=== PATIENT | female | born 1995 | race Caucasian/White ===

== ENCOUNTER → 2020-08-15 10:58 | Outpatient (BNVA) | payer OTHER, SELFPAY | PROVIDERS: Visit Provider Nurse Practitioner | DX: Z11.59 Encounter for screening for other viral diseases (principal) | CPT/HCPCS: 87635 ==

== ENCOUNTER → 2021-04-26 09:07 | Outpatient (BNVA) | payer OTHER, SELFPAY | PROVIDERS: PCP Nurse Practitioner; Visit Provider Nurse Practitioner | DX: R53.83 Other fatigue (principal); E55.9 Vitamin D deficiency, unspecified; E66.9 Obesity, unspecified | CPT/HCPCS: 80053; 80061; 82306; 82607; 84443; 85025 ==

== ENCOUNTER → 2021-09-20 09:52 | Outpatient (BNVA) | payer OTHER, SELFPAY | PROVIDERS: PCP Nurse Practitioner; Visit Provider Nurse Practitioner | DX: K59.00 Constipation, unspecified (principal) | CPT/HCPCS: 74018 ==

== ENCOUNTER 2021-11-15 08:56 | Outpatient (CLI) | payer OTHER, SELFPAY ==
[2021-11-15 09:10] VITALS: BP 127/61; PULSE 57; RESP 23; TEMP 36.9; O2SAT 99
[2021-11-15 09:22] VITALS: BMI 38.9
[2021-11-15 09:37] VITALS: BP 139/74; PULSE 52; RESP 19; TEMP 36.6; O2SAT 99
[2021-11-15 10:37] VITALS: BP 129/70; PULSE 54; RESP 21; TEMP 36.1; O2SAT 99
== END 2021-11-15 08:57 | disposition home or self-care (01) ==
LOC: OPS 08:59
PROVIDERS: PCP Nurse Practitioner; Visit Provider Nurse Practitioner
DX: U07.1 COVID-19 (principal)
CPT/HCPCS: 96365

== ENCOUNTER → 2023-05-23 10:57 | Outpatient (BNVA) | payer OTHER, SELFPAY | PROVIDERS: PCP Nurse Practitioner Family; Visit Provider Nurse Practitioner Family | DX: R11.2 Nausea with vomiting, unspecified (principal); J45.909 Unspecified asthma, uncomplicated | CPT/HCPCS: 80053; 82306; 82607; 84443; 85025; 86308; 87400; 87426 ==

== ENCOUNTER 2023-05-27 06:37 | Outpatient (CLI) | payer OTHER, SELFPAY ==
--- NOTE | 2023-05-27 | US_ITS ---
WS: [id number] Complete ABDOMINAL ULTRASOUND HISTORY: n/v COMPARISON: None available. Liver: 13.0 cm in length. Normal size liver and echogenicity. No bile duct dilatation or mass. Portal Vein: Normal hepatopetal flow with monophasic waveform. Gallbladder: Abnormal gallbladder. Large amount shadowing from the gallbladder fossa. Partially visua lized gallbladder. Large amount of shadowing from the gallbladder is from the nondependent gallbladde r lumen. CBD: 0.2 cm Pancreas: Normal size and echogenicity. Right kidney: 10.6 cm x 4.7 x 3.8 cm. Cortex:1.2 cm. Normal size and echogenicity. No hydronephrosis or mass. Left kidney: 10.7 cm x 3.8 cm x 4.3 cm. Cortex: 1.2 cm. Normal size and echogenicity. No hydronephrosis or mass. Spleen: 12.0 cm in length. Aorta and IVC: Unremarkable abdominal aorta and IVC. US/US abdomen complete* [id number] Impression: 1. Very abnormal gallbladder. Gallbladder is filled with stones and sludge. Th e gallbladder wall is top normal size with no pericholecystic fluid. 2. No bile duct dilatation.
== END 2023-05-27 06:38 | disposition home or self-care (01) ==
LOC: RAD 06:38
PROVIDERS: PCP Nurse Practitioner Family; Visit Provider Nurse Practitioner Family
DX: K80.20 Calculus of gallbladder without cholecystitis without obstruction (principal); R11.2 Nausea with vomiting, unspecified
CPT/HCPCS: 76700

== ENCOUNTER 2023-06-10 10:07 | Day surgery (SDC) | payer OTHER, SELFPAY ==
[2023-06-07 14:26] VITALS: BMI 38.4
[2023-06-10] VITALS (9 sets, daily range): BP systolic 107–139; BP diastolic 54–86; PULSE 55–80; RESP 16–18; TEMP 36.2–37.2; O2SAT 93–100
--- NOTE | 2023-06-10 10:29 | W.PM.OPSUD ---
Surgery/Procedure H&P Update DATE OF PROCEDURE: June 10, 2023 DATE H&P PERFORMED: 05/30/23 H&P UPDATE INFORMATION: I have reviewed H&P completed within last 30 days, I have examined patient prior to procedure and No changes to prior documentation PLANNED PROCEDURE: Operation Date: 06/10/23 11:40 Proposed Procedures p [id number] lap angela K80.20(Not Applicable) - Lorenzo Lara DO
--- NOTE | 2023-06-10 10:44 | P.ANESASSM_ITS ---
Pre-Anesthetic Assessment Height/Weight: Height 1.57 m Weight 95.254 kg Temp Pulse Resp BP Pulse Ox O2 Del Method 99 F 80 18 139/86 100 Room Air 06/10/23 10:28 06/10/23 10:28 06/10/23 10:28 06/10/23 10:28 06/10/23 10:28 06/10/23 10:36 Operation Date: 06/10/23 11:40 Proposed Procedures p [id number] lap angela K80.20(Not Applicable) - Lorenzo Lara DO Familial anesthetic complications: None Was Beta Ellie taken within 24 hours: N/A Was Clonidine taken within 24 hours: N/A Last intake: Intake Last Liquid Date 06/09/23 Last Liquid Time 23:00 Last Solid Date 06/09/23 Last Solid Time 22:00 Social No alcohol and No tobacco Exam alert, oriented x 3, clear to auscultation bilaterally and regular rate & rhythm Airway Mallampati: Class III Dentition: full Pulmonary Asthma Metabolic Morbid Obesity Anesthetic Plan ASA status: 2 Anesthesia: General Risk of > 500 ml blood loss (7ml/kg in children): No Medications/Allergies Home Medications Medication Instructions Recorded Confirmed Last Taken Type nebulizer accessories #1 ea 08/15/20 05/30/23 Unknown Rx Disposable nebulizer circuit #1 ea 11/13/21 05/30/23 Unknown Rx albuterol sulfate 2.5 mg/3 mL 2.5 mg (3 mL) inhalation Q4H PRN 11/01/22 06/07/23 05/22/23 Rx (0.083 %) solution for nebulization shortness of breath or wheezing #75 mL albuterol sulfate 90 mcg/actuation 2 inh inhalation Q4H PRN 05/23/23 06/07/23 06/10/23 Rx aerosol inhaler (Ventolin HFA) bronchospasm #36 grams fluticasone furoate 200 1 inh inhalation DAILY #60 ea 05/23/23 06/07/23 06/09/23 Rx mcg-vilanterol 25 mcg/dose inhalation powder (Breo Ellipta) fluticasone propionate 50 2 spray intranasal QDAY #15.8 mL 05/23/23 06/07/23 06/10/23 Rx mcg/actuation nasal spray,suspension loratadine 10 mg tablet (Claritin) 10 mg PO DAILY #30 tabs 05/23/23 06/07/23 06/10/23 Rx montelukast 10 mg tablet 10 mg PO DAILY #30 tabs 05/23/23 06/07/23 06/10/23 Rx norgestimate-ethinyl estradiol 1 tab PO QDAY #84 tabs 05/23/23 06/07/23 06/10/23 Rx 0.18 mg/0.215mg/0.25mg-35 mcg(28)tablet (Tri-Sprintec (28)) ondansetron 8 mg disintegrating 8 mg PO Q8H PRN nausea and 05/23/23 06/07/23 06/03/23 Rx tablet vomiting #30 tabs dexlansoprazole 60 mg 60 mg PO DAILY #30 caps 05/29/23 06/07/23 06/09/23 Rx capsule,biphase delayed release (Dexilant) magnesium 200 mg tablet 200 mg PO DAILY 05/30/23 06/07/23 06/09/23 History Allergies Allergy/AdvReac Type Severity Reaction Status Date / Time No Known Allergies Allergy Verified 05/30/23 13:52 [facility] Anesthesia Medical History Asthma Oral contraceptive pill surveillance Surgical History History of appendectomy Family History Father Chronic kidney disease (CKD) Diabetes Social History Smoking and tobacco status: never smoked Second hand smoke exposure: Yes Smoking risk assessment/counseling performed?: No Alcohol intake: current Alcohol intake frequency: few times a month Desire information about alcohol rehabilitation?: No Counseling given: No Substance/Drug Use: never Desire information about substance/drug rehabilitation?: No Counseling given: No Adopted: No Caregiver/support person: Yes Lives independently: Yes Household members: significant other Housing: House Marital status: Single Number of children: 0 service: No Current occupational status: employed and student Current occupation: [employer] Do you think of yourself as: Straight/Heterosexual Current gender identity: Female Data Anesthesia Cardiac Studies: No Data to Display
[2023-06-10] MEDS: sodium chloride 0.9% 1,000 ML 30 ML IV (10:45)
[2023-06-10 10:48] LABS: OR HCG Qualitative Urine Negative (Negative)
[2023-06-10] MEDS: ceFAZolin 2,000 MG in sodium chloride 0.9% (plus) 50 ML 100 MG IV (10:55)
[2023-06-10] MEDS: lidocaine-epi 2% 20 mL INJ INJECTION (11:09)
--- NOTE | 2023-06-10 11:35 | P.OP_ITS ---
Operative Report Date of procedure: June 10, 2023 Pre-op diagnosis: Symptomatic cholelithiasis Post-op diagnosis: same Procedure done: Laparoscopic cholecystectomy Implants: None Specimens removed/disposition: Gallbladder Surgeon: Dr. Lorenzo Lara DO Anesthesia: General Estimated blood loss (mL): 5 Complications: None apparent Brief History: This very pleasant 27-year-old female who presented to my office with symptomatic cholelithiasis. Laparoscopic cholecystectomy was indicated. The risk and benefits were explained and documented. Procedure: Patient was wheeled into the operative room and placed on the OR table in a supine position. Abdomen was inspected prepped and draped in usual sterile fashion. Time-out was performed and all present were in agreement. A 15 blade scalp was used to make a stab incision in the left upper quadrant and intra-ab dominal insufflation was achieved using a Veress needle. After localizing the tissue incisions were made and a 5 millimeter trocar was placed into the umbilicus as well as 2 in the right upper quadrant. A 12 millimeter trocar was placed in the epigastrium. Gallbladder was grasped and elevated. The triangle of Calot was carefully dissected using blunt dissection and electrocautery until the triangle of Calot clearly identified. The cystic duct was clipped proximally and double clipped distally. The duct was then ligated proximally. The cystic artery was doubly clipped and ligated. The gallbladder was then removed from the liver bed using electrocautery. The gallbladder was removed from the abdomen using an Endo-Catch bag through the epigastric incision. The liver bed was inspected and no bleeding was seen. The abdomen was irrigated and suctioned. All ports removed. Skin was washed and dried. Incisions were closed with 3-0 and 4-O Vicryl in a subcuticular interrupted fashion. Skin glue was applied. Patient tolerated the procedure well.
--- NOTE | 2023-06-10 13:00 | ANE.PACU2 ---
Inpatient post-anesthesia follow up: Airway intact: Yes Vital signs: Temperature 97.2 F Pulse Rate 56 Respiratory Rate 16 Blood Pressure 107/71 Pulse Oximetry 97 Oxygen Delivery Me thod Room Air Oxygen Flow Rate Fraction of Inspir ed Oxygen Hydration adequate: Yes Nausea and vomiting: No Pain level: 1 Mental status: Baseline
[2023-06-10] MEDS: HYDROcodone-acetaminophen 10-325 mg Tablet 1 TAB PO (13:06)
[2023-06-10] MEDS: ondansetron 2 mg/ML SDV 2 mL 4 MG IVP (13:12)
== END 2023-06-10 13:57 | disposition home or self-care (01) ==
PROVIDERS: Anesthesiology; PCP Nurse Practitioner Family; Visit Provider Surgery
PROC: 0FT44ZZ Resection of Gallbladder, Percutaneous Endoscopic Approach (ICD-10-PCS; CPT 47562; principal; 2023-06-10 11:40)
DX: K80.10 Calculus of gallbladder with chronic cholecystitis without obstruction; J45.909 Unspecified asthma, uncomplicated; E66.01 Morbid (severe) obesity due to excess calories; Z68.38 Body mass index [BMI] 38.0-38.9, adult
CPT/HCPCS: 47562; 81025; 84703; 88304; J0690; J1100; J1170; J1200; J2250; J2405; J2704; J2710; J3010; J3490; J7030

== ENCOUNTER → 2024-01-21 12:52 | Outpatient (BNVA) | payer OTHER, SELFPAY | PROVIDERS: PCP Nurse Practitioner Family; Visit Provider Family Medicine | DX: Z34.90 Encounter for supervision of normal pregnancy, unspecified, unspecified trimester (principal); Z3A.00 Weeks of gestation of pregnancy not specified; R30.0 Dysuria | CPT/HCPCS: 80307; 81000; 81025; 84144; 84443; 84702; 85025; 86592; 86762; 86803; 86850; 86900; 87086; 87340; 87491; 87591; 87624; 87806 ==

== ENCOUNTER 2024-01-28 14:49 | Outpatient (CLI) | payer OTHER, SELFPAY ==
--- NOTE | 2024-01-28 15:00 | US_ITS ---
WS: [id number] EARLY OBSTETRICAL ULTRASOUND (<14 WEEKS). HISTORY: Dating US - Next 1-2 weeks if possible COMPARISON: None available. Single intrauterine gestational sac is identified. Cardiac activity at 165 BPM. [place]-rump length kianna sures 2.5 cm which corresponds to a gestation of 9 weeks 2 days. Normal-appearing yolk sac and amnion demonstrated. No subchorionic hemorrhage. No free fluid. RIGHT ovary measures 3.4 x 1.6 x 2.8 cm. There are small follicles in the RIGHT ovary and a corpus maximo teal cyst measuring 2.3 x 1.7 x 1.6 cm. Normal size LEFT ovary with normal vascularity. IMPRESSION: 1. Single intrauterine gestation of 9 weeks 2 days with an EDC of 08/30/2024. 2. Normal cardiac activity.
== END 2024-01-28 14:50 | disposition home or self-care (01) ==
LOC: RAD 14:49
PROVIDERS: PCP Nurse Practitioner Family; Visit Provider Family Medicine
DX: Z34.01 Encounter for supervision of normal first pregnancy, first trimester (principal)
CPT/HCPCS: 76801; 76817

== ENCOUNTER 2024-04-16 10:54 | Outpatient (CLI) | payer OTHER, SELFPAY ==
--- NOTE | 2024-04-16 11:00 | US_ITS ---
WS: [id number] OBSTETRICAL ULTRASOUND COMPLETE HISTORY: Anatomy US - about 4 weeks from now COMPARISON: 01/28/2024 Single intrauterine gestation in Cephalic presentation. Cervix is Closed and normal length. Cervical length is 2.5 cm. Cervical length is measuring short but there is no fluid in the cervical c anal. Suspect the entire cervical length is not imaged due to maternal body habitus. Normal amount of amniotic fluid surrounds the fetus. Placenta: Posterior, no previa or abruption. Placenta grade 1 Heart: 150 BPM. Four chambers are identified. Although limited the outflow tracts appear appropriate. Normal three-vessel view. Anatomy: Spine is posterior during the examination. Intracranial structures are negative. kidne ys, stomach and urinary bladder are unremarkable. Abdominal wall, three-vessel cord and cord insertio n site are normal. 4 extremities are present. profile: Not visualized Gender: Not imaged measurements: BPD = 5.0 cm = 21w1d; HC = 18.5 cm = 20w6d; AC = 15.5 cm = 20w5d; FL = 3.4 cm = 20w5d; EFW: 374.8 g. 46.9 % Biometry is internally concordant. AGA by ultrasound: 20w5d FLORI by ultrasound: 08/29/2024 US/US OB >= 14 weeks fetus [id number] IMPRESSION: 1. Single intrauterine gestation of 20w5d with an FLORI of 08/29/2024. Appropria te growth since the first trimester ultrasound. 2. Overall the anatomic screening survey is limited as maternal body habitus. No abnormalities are identified. Mildly limited spine due to position.
== END 2024-04-16 10:55 | disposition home or self-care (01) ==
LOC: RAD 10:54
PROVIDERS: PCP Nurse Practitioner Family; Visit Provider Family Medicine
DX: Z34.02 Encounter for supervision of normal first pregnancy, second trimester (principal)
CPT/HCPCS: 76805

== ENCOUNTER → 2024-05-15 09:18 | Outpatient (BNVA) | payer OTHER, SELFPAY | PROVIDERS: PCP Nurse Practitioner Family; Visit Provider Family Medicine | DX: Z34.00 Encounter for supervision of normal first pregnancy, unspecified trimester (principal); Z3A.00 Weeks of gestation of pregnancy not specified | CPT/HCPCS: 82950 ==

== ENCOUNTER → 2024-06-10 13:54 | Outpatient (BNVA) | payer OTHER, SELFPAY | PROVIDERS: PCP Nurse Practitioner Family; Visit Provider Nurse Practitioner Family | DX: Z20.822 Contact with and (suspected) exposure to COVID-19 (principal) | CPT/HCPCS: 87426 ==

== ENCOUNTER → 2024-06-29 09:20 | Outpatient (BNVA) | payer OTHER, SELFPAY | PROVIDERS: PCP Nurse Practitioner Family; Visit Provider Family Medicine | DX: Z51.81 Encounter for therapeutic drug level monitoring (principal) | CPT/HCPCS: 85025 ==

== ENCOUNTER → 2024-06-30 14:00 | Outpatient (BNVA) | payer OTHER, SELFPAY | PROVIDERS: PCP Nurse Practitioner Family; Visit Provider Family Medicine | DX: N18.9 Chronic kidney disease, unspecified (principal) | CPT/HCPCS: 85025 ==

== ENCOUNTER 2024-08-07 06:00 | Outpatient (CLI) | payer OTHER, SELFPAY | END 2024-08-07 06:01 | disposition home or self-care (01) | LOC: RAD 08-10 06:22 | PROVIDERS: PCP Nurse Practitioner Family; Visit Provider Family Medicine | DX: Z34.90 Encounter for supervision of normal pregnancy, unspecified, unspecified trimester (principal) | CPT/HCPCS: 87081 ==

== ENCOUNTER 2024-08-14 10:39 | Outpatient (CLI) | payer OTHER, SELFPAY ==
--- NOTE | 2024-08-14 10:45 | US_ITS ---
WS: [id number] ULTRASOUND OB FOCUSED HISTORY: DETERMINE POSITION COMPARISON: 04/16/2024 Single intrauterine gestation is present in vertex presentation. The cervix is not identified due to low position of the head. Placenta is posterior and grade 2. heart rate at 136 BPM. US/US OB limited [id number] IMPRESSION: Vertex presentation.
== END 2024-08-14 10:40 | disposition home or self-care (01) ==
LOC: RAD 10:40
PROVIDERS: PCP Nurse Practitioner Family; Visit Provider Family Medicine
DX: O32.8XX0 Maternal care for other malpresentation of fetus, not applicable or unspecified (principal)
CPT/HCPCS: 76815

== ENCOUNTER 2024-09-01 19:04 | Inpatient (IN) | payer OTHER, SELFPAY ==
[2024-09-01 19:15] VITALS: BP 135/73; PULSE 95
[2024-09-01 19:33] VITALS: BP 115/71; PULSE 94
[2024-09-01 19:41] LABS: Basophils % 0.3 %; Eosinophils # 0.1 10^3/uL (0.0-0.8); Eosinophils % 0.7 %; Hematocrit 37.4 % (36-47); Lymphocytes # 2.4 10^3/uL (0.8-4.8); Lymphocytes % 17.5 %; Mean Corpuscular HGB Conc 34.2 g/dL (30-55); Mean Corpuscular Hemoglobin 31.8 pg (27-33); Mean Corpuscular Volume 92.8 fl (85-98); Monocytes # 0.7 10^3/uL (0.2-0.9); Monocytes % 5.4 %; Neutrophils # 10.35 10^3/uL (1.8-7.7); Neutrophils % 75.2 %; Nucleated Red Blood Cells % 0 %; Platelet Count 238 10^3/cmm (157-399); Red Blood Count 4.03 10^6/uL (3.85-5.65); Red Cell Distribution Width 12.6 % (12.1-15.1); White Blood Count 13.75 10^3/uL (3.29-11.43)
[2024-09-01 19:43] VITALS: BMI 48.5
[2024-09-01 19:47] VITALS: BP 116/55; PULSE 81
--- NOTE | 2024-09-01 19:55 | PC.NURSE ---
Nurses Indigo Jean, and Indigo Hoyt checked presentation at bedside using sono, both nurses confirmed fetus in head down position, sono printed and placed in patient's chart.
[2024-09-01 20:00] LABS: Amphetamines Screen Urine Negative (Negative); Barbiturates Screen Urine Negative (Negative); Benzodiazepines Screen Urine Negative (Negative); Cocaine Screen Urine Negative (Negative); Opiate Screen Urine Negative (Negative); PCP Screen Urine Negative (Negative); THC Screen Urine Negative (Negative)
[2024-09-01 20:06] VITALS: RESP 18; TEMP 36.6
[2024-09-01] MEDS: miSOPROStol 100 mcg tablet 25 MCG VAGINAL (21:07)
--- NOTE | 2024-09-01 21:09 | P.HP_ITS ---
Providers/Chief Complaint 2 Admitting Physician: Simone Connor MD Primary Care Provider: Simone Connor MD Chief Complaint: IOL History of Present Illness Citlali Cornejo is a 28 year old @ 40.2 weeks by LMP c/w with 9 wk US. Preg c/b asthma, THC use in early . The patient presented to labor and delivery for a scheduled induction of labor due to postdates. She feels well overall. She denies any chest pains, shortness of breath, nausea, vomiting, diarrhea, constipation, dysuria, vaginal bleeding, leakage of fluid, fever. She has had some low back pain that has been present for a few weeks. It seems to be worse with position change and better with rest. On the monitor she is not having any contractions. Her heart tones are in the mid 150s with moderate variability good accelerations with a category 1 tracing. Medications/Allergies Home Medications Medication Instructions Recorded Confirmed Last Taken Type nebulizer accessories #1 ea 08/15/20 09/01/24 Unknown Rx Disposable nebulizer circuit #1 ea 11/13/21 09/01/24 Unknown Rx albuterol sulfate 2.5 mg/3 mL 2.5 mg (3 mL) inhalation Q4H PRN 11/01/22 09/01/24 09/01/24 Rx (0.083 %) solution for nebulization shortness of breath or wheezing #75 mL magnesium 200 mg tablet 200 mg PO DAILY 05/30/23 09/01/24 06/09/23 History vitamin with calcium 1 tab PO DAILY 01/21/24 09/01/24 08/31/24 History no.72-iron 27 mg-folic acid 1 mg tablet fluticasone propionate 50 See Rx Instructions .Route 05/03/24 09/01/24 09/01/24 Rx mcg/actuation nasal .COMPLEX #16 grams spray,suspension loratadine 10 mg tablet See Rx Instructions .Route 05/03/24 09/01/24 09/01/24 Rx .COMPLEX #30 tabs albuterol sulfate 90 mcg/actuation See Rx Instructions .Route 05/29/24 09/01/24 09/01/24 Rx aerosol inhaler .COMPLEX #36 grams fluticasone furoate 200 See Rx Instructions .Route 05/29/24 09/01/24 09/01/24 Rx mcg-vilanterol 25 mcg/dose .COMPLEX #60 blisters inhalation powder (Breo Ellipta) montelukast 10 mg tablet See Rx Instructions .Route 06/01/24 09/01/24 09/01/24 Rx .COMPLEX #30 tabs Allergies Allergy/AdvReac Type Severity Reaction Status Date / Time No Known Allergies Allergy Verified 09/01/24 19:07 PFSH Acute 2 PFSH: Medical History Oral contraceptive pill surveillance Asthma Surgical History History of laparoscopic cholecystectomy History of appendectomy Family History Father Chronic kidney disease (CKD) Diabetes Social History Smoking and tobacco/nicotine status: former use of tobacco/nicotine Second hand smoke exposure: Yes Alcohol intake: never Substance/Drug Use: former Former substance use details: Quit THC when she became Adopted: No Caregiver/support person: Yes Lives independently: Yes Household members: significant other Housing: House Marital status: Single Number of children: 0 service: No Current occupational status: employed and student Current occupation: [employer] Do you think of yourself as: Straight/Heterosexual Current gender identity: Female Female Reproductive History: : 1 Vitals/I&O/Wt Last Vital Signs Temp 97.8 F 09/01/24 20:06 Pulse 81 09/01/24 19:47 Resp 18 09/01/24 20:06 BP 116/55 09/01/24 19:47 O2 Del Method Room Air 09/01/24 20:06 Weight last 48 hrs Weight 265 lb 8 oz Physical Exam 2 Narrative: General: Alert and oriented x3 Eyes: Pupils equal round and reactive to light and accommodation Mouth: Mucous membranes moist, pharynx non-erythematous Cardiac: Regular rate and rhythm without murmurs Lungs: Clear to auscultation bilaterally without wheezes, crackles or rhonchi Abdomen: Soft, non-tender, fundus consistent with gestational age Extremities: Trace edema in the bilateral lower extremities Data 09/01/24 19:28 A&P Assessment and plan (1) Supervision of normal intrauterine in primigravida: The patient is doing well overall at this time. She was 1 cm in clinic and we will start her on Cytotec for induction of labor. We will use up to 3 doses. She is GBS negative. We will plan for a laboring epidural when she gets to 3 cm or more if she would like. All questions were answered. Routine admission instructions were discussed. The patient and her are in agreement with current plan of care. Attestations 2 Medical Necessity Statement*: The patient will be here for greater than 2 midnights due to routine intrapartum and management of labor and delivery. Coding Level of Care Code Acute Code for Chg Fwd Diagnoses Supervision of normal intrauterine in primigravida Z34.00
[2024-09-01 22:16] VITALS: BP 107/54; PULSE 75
[2024-09-01 23:38] VITALS: BP 115/62; PULSE 82
[2024-09-02] VITALS (33 sets, daily range): BP systolic 88–144; BP diastolic 43–91; PULSE 52–169; RESP 16–18; TEMP 36.2–36.8; O2SAT 98
[2024-09-02] MEDS: miSOPROStol 100 mcg tablet 25 MCG VAGINAL ×3 (01:21→11:02)
--- NOTE | 2024-09-02 08:42 | P.PN_ITS ---
Subjective 2 Subjective: The patient is doing well today. She had her third dose of Cytotec placed at approximately 5:30 AM. She feels that she has had more contractions since this 1 was placed. She has not had any leakage of fluid or vaginal bleeding. Vitals/I&O/Wt Last Vital Signs Temp 97.6 F 09/02/24 04:45 Pulse 74 09/02/24 08:15 Resp 18 09/02/24 04:45 BP 133/60 09/02/24 08:15 O2 Del Method Room Air 09/02/24 04:45 Weight last 48 hrs Weight 265 lb 8 oz Physical Exam 2 Narrative: General: Alert and oriented x3 Eyes: Pupils equal round and reactive to light and accommodation Mouth: Mucous membranes moist, pharynx non-erythematous Cardiac: Regular rate and rhythm without murmurs Lungs: Clear to auscultation bilaterally without wheezes, crackles or rhonchi Abdomen: Soft, non-tender, fundus consistent with gestational age Extremities: Trace edema in the bilateral lower extremities Data 09/01/24 19:28 A&P Assessment and plan (1) Supervision of normal intrauterine in primigravida: The patient is doing well at this time. We will plan to check her again at 930 to see if she is making cervical change. If not, we may allow her to take a break and decide on the next step from there. We discussed a few of the options including Pitocin, Mcqueen bulb and Cytotec. heart tones are in the mid 140s with moderate variability good accelerations with a category 1 tracing. Contractions are every 3 to 5 minutes. Continue with routine intrapartum management. Attestations 2 Medical Necessity Statement*: The patient is currently under observation and will be switched to inpatient status once she starts making change. Her stay will likely cross 2 midnights. Coding Level of Care Code Acute Code for Chg Fwd Diagnoses Supervision of normal intrauterine in primigravida Z34.00
[2024-09-02] MEDS: dextrose 5%-lactated ringers 1,000 ML 125 ML IV ×2 (15:45→23:47)
[2024-09-02] MEDS: oxytocin 30 UNIT/500 ML BAG IV (15:45)
--- NOTE | 2024-09-02 17:10 | ANES.PREANE2 ---
Pre-Anesthetic Assessment Height/Weight: Height 1.57 m Weight 120.429 kg Temp Pulse Resp BP O2 Del Method 97.2 F L 70 18 100/64 Room Air 09/02/24 13:27 09/02/24 17:07 09/02/24 04:45 09/02/24 17:07 09/02/24 04:45 Epidural Familial anesthetic complications: None Was Beta Ellie taken within 24 hours: N/A Was Clonidine taken within 24 hours: N/A Last intake: 1000 solids, ice chips Social No alcohol and No tobacco Exam alert, oriented x 3, clear to auscultation bilaterally and regular rate & rhythm Airway Submandibular: within normal limits Cervical ROM: within normal limits Mallampati: Class III Dentition: full History/ROS No significant history except as noted and No significant complaints Pulmonary Asthma CV/HEM None reported None reported Hepatic None reported GI Gastroesophageal Reflux Disease Metabolic Morbid Obesity [facility] None reported Neuropsych Neuropathy Anesthetic Plan ASA status: 3 Anesthesia: Anesthesia Evaluation, General and Regional (specify below) (Epidural) Risk of > 500 ml blood loss (7ml/kg in children): Yes, adequate IV access and fluids planned Medications/Allergies Home Medications Medication Instructions Recorded Confirmed Last Taken Type nebulizer accessories #1 ea 08/15/20 09/01/24 Unknown Rx Disposable nebulizer circuit #1 ea 11/13/21 09/01/24 Unknown Rx albuterol sulfate 2.5 mg/3 mL 2.5 mg (3 mL) inhalation Q4H PRN 11/01/22 09/01/24 09/01/24 Rx (0.083 %) solution for nebulization shortness of breath or wheezing #75 mL magnesium 200 mg tablet 200 mg PO DAILY 05/30/23 09/01/24 06/09/23 History vitamin with calcium 1 tab PO DAILY 01/21/24 09/01/24 08/31/24 History no.72-iron 27 mg-folic acid 1 mg tablet fluticasone propionate 50 See Rx Instructions .Route 05/03/24 09/01/24 09/01/24 Rx mcg/actuation nasal .COMPLEX #16 grams spray,suspension loratadine 10 mg tablet See Rx Instructions .Route 05/03/24 09/01/24 09/01/24 Rx .COMPLEX #30 tabs albuterol sulfate 90 mcg/actuation See Rx Instructions .Route 05/29/24 09/01/24 09/01/24 Rx aerosol inhaler .COMPLEX #36 grams fluticasone furoate 200 See Rx Instructions .Route 05/29/24 09/01/24 09/01/24 Rx mcg-vilanterol 25 mcg/dose .COMPLEX #60 blisters inhalation powder (Breo Ellipta) montelukast 10 mg tablet See Rx Instructions .Route 06/01/24 09/01/24 09/01/24 Rx .COMPLEX #30 tabs Allergies Allergy/AdvReac Type Severity Reaction Status Date / Time No Known Allergies Allergy Verified 09/01/24 19:07 Current Medications Generic Name Dose Route Start Last Admin Trade Name Freq PRN Reason Stop Dose Admin Dextrose/Lactated Ringer's 1,000 mls @ 125 mls/hr 09/01/24 19:15 09/02/24 15:45 Dextrose 5%-Lactated Ringers IV 125 mls/hr .Q8H BRIGIDA Administration Oxytocin 30 unit in 500 mls @ 1 mls/hr 09/02/24 15:15 09/02/24 16:40 Pitocin IV 5 milliunit/min .Q24H BRIGIDA 5 mls/hr Titration Protocol 1 MILLIUNIT/MIN PFSH Anesthesia Medical History Oral contraceptive pill surveillance Asthma Surgical History History of laparoscopic cholecystectomy History of appendectomy Family History Father Chronic kidney disease (CKD) Diabetes Social History Smoking and tobacco/nicotine status: unknown if used tobacco/nicotine Second hand smoke exposure: Yes Alcohol intake: never Substance/Drug Use: former Former substance use details: Quit THC when she became Adopted: No Caregiver/support person: Yes Lives independently: Yes Household members: significant other Housing: House Marital status: Single Number of children: 0 service: No Current occupational status: employed and student Current occupation: [employer] Do you think of yourself as: Straight/Heterosexual Current gender identity: Female Female Reproductive History : 1 Data Anesthesia 09/01/24 19:28 Short CBC 10/01/24 Range/Units 19:28 WBC 13.75 H (3.29-11.43) 10^3/uL Hgb 12.80 (11.27-16.99) g/dL Hct 37.4 (36-47) % MCV 92.8 (85-98) fl Plt Count 238 (157-399) 10^3/cmm Neut % (Auto) 75.2 % Neut # (Auto) 10.35 H (1.8-7.7) 10^3/uL Blood Bank 09/01/24 19:28 Blood Type AB Positive Rho(D) Type Rh positive Antibody Screen Negative Cardiac Studies: No Data to Display
[2024-09-02] MEDS: fentaNYL 50 mcg/mL INJ 2mL IVP (22:50)
[2024-09-03] VITALS (66 sets, daily range): BP systolic 105–158; BP diastolic 48–92; PULSE 52–98; RESP 15–17; TEMP 36.6–37; O2SAT 98; BMI 48.5
[2024-09-03] MEDS: fentaNYL 50 mcg/mL INJ 2mL IVP ×6 (00:43→22:52)
--- NOTE | 2024-09-03 08:56 | P.PN_ITS ---
Subjective 2 Subjective: Overnight, the patient was not making significant change with IV Pitocin, so at approximately 10 PM on 09/02/2024 a Mcqueen bulb was placed. Placement was not difficult, however the patient did have significant discomfort with the bulb being in place. She received fentanyl overnight x 3 doses. Her pain is much better today. The bulb has not come out yet. The patient denies any leakage of fluid, vaginal bleeding, chest pain, shortness of breath. Vitals/I&O/Wt Last Vital Signs Temp 97.9 F 09/03/24 08:00 Pulse 89 09/03/24 07:40 Resp 17 09/03/24 08:00 BP 123/67 09/03/24 07:40 Pulse Ox 98 09/03/24 00:43 O2 Del Method Room Air 09/02/24 04:45 09/02/24 09/03/24 09/03/24 22:59 06:59 14:59 Intake Total 66.668 / 66.668 1000 / 1066.668 Balance 66.668 / 66.668 1000 / 1066.668 Weight last 48 hrs Weight 265 lb 8 oz Weight 265 lb 8 oz Physical Exam 2 Narrative: General: Alert and oriented x3 Cardiac: Regular rate and rhythm without murmurs Lungs: Clear to auscultation bilaterally without wheezes, crackles or rhonchi Abdomen: Soft, non-tender, fundus consistent with gestational age Extremities: Trace edema in the bilateral lower extremities Data 09/01/24 19:28 A&P Assessment and plan (1) Supervision of normal intrauterine in primigravida: The patient's overall progress has been slow at this point. The Mcqueen bulb is still currently in place. We discussed options and the patient would like to proceed with adding IV Pitocin while the Mcqueen bulb is in place. We may leave the bulb in place for over 12 hours as long as there are no signs of infection. Certainly if it is still in place by this afternoon, we will plan to remove it at that time. heart tones are currently category 1. Patient's vital signs are stable. Continue with induction of labor. The patient and her are in agreement with current plan of care. Attestations 2 Medical Necessity Statement*: The patient will be here for greater than 2 midnights due to intrapartum and management of labor and delivery. Coding Level of Care Code Acute Code for Chg Fwd Diagnoses Supervision of normal intrauterine in primigravida Z34.00
[2024-09-03] MEDS: oxytocin 30 UNIT/500 ML BAG IV (10:21)
[2024-09-03] MEDS: dextrose 5%-lactated ringers 1,000 ML 125 ML IV ×2 (10:22→18:33)
[2024-09-03] MEDS: ondansetron 2 mg/ML SDV 2 mL 4 MG IVP (20:46)
[2024-09-03] MEDS: lactated ringers 1,000 ML 999 ML IV (23:25)
[2024-09-04] VITALS (103 sets, daily range): BP systolic 98–165; BP diastolic 47–92; PULSE 51–106; RESP 15–18; TEMP 36.6–37.4; O2SAT 97–100; BMI 48.5
[2024-09-04] MEDS: lactated ringers 1,000 ML 999 ML IV ×2 (00:27→16:00)
[2024-09-04] MEDS: ROPivacaine syringe 100 MG/50 ML SYRINGE 10 MG EPIDURAL ×4 (00:47→14:35)
--- NOTE | 2024-09-04 00:47 | P.ANESUD_ITS ---
Pre-Anesthetic Update Pre-Anesthetic Assessment: Date of Surgery/Procedure: 09/04/24 Preop Citlalli gnosis: IUP Proposed Procedure: Labor Epidural Any changes to Pre-Anesthetic Assessment?: No Last Intake: clears- currently Vitals: Temperature 98.3 F 09/03/24 19:12 Temperature Source Oral 09/03/24 19:12 Pulse Rate 85 09/04/24 00:41 Pulse Rhythm Regular 09/01/24 19:04 Pulse Strength 3+ Normal 09/01/24 19:04 Respiratory Rate 16 09/03/24 22:52 Respiratory Effort Spontaneous, Non- Labored 09/03/24 22:52 Respiratory Depth Normal 09/03/24 22:52 Respiratory Patter n Normal 09/03/24 22:52 Blood Pressure 147/70 09/04/24 00:41 Blood Pressure Pos ition Semi Fowlers 09/01/24 20:06 Pulse Oximetry 98 09/04/24 00:41 Oxygen Delivery Me thod Room Air 09/02/24 04:45 Exam: Pre-Anes Outpt Exam: alert, oriented x 3 and clear to auscultation bilaterally Cardiac Studies: No Data to Display Anesthesia Procedures Epidural: Time Out Performed: Yes Consents Signed: Procedure Consent Consent: from patient, risks and benefits reviewed and patient agrees to proceed Lumbar Level: L3-L4 Epidural position: sitting Epidural procedure: sterile prep of area, 1% lidocaine to numb the area, negative for paresthesia passed, test dose given, 1.5% xylocaine 1:200k epi, placed PCEA, no systemic response, sterile dressing applied, L.U.D. no apparent complications and 0.2% Ropiavacaine @ mls/hr (10) Additional Comments: SRINIVASAN @ 8cm , first attempt, - heme -csf. catheter threaded to 14cm with ease. Adequate analgesia achieved. 100 mcg Fentanyl given via epidural.
[2024-09-04] MEDS: dextrose 5%-lactated ringers 1,000 ML 125 ML IV ×2 (05:17→12:28)
--- NOTE | 2024-09-04 06:38 | P.PN_ITS ---
Subjective 2 Subjective: The patient's Mcqueen bulb was placed and approximately 10 PM on 09/02/2024. By the following morning it had not come out yet, so IV Pitocin was restarted to help extrude it around 10 AM. By approximately 5:30 PM, the Mcqueen bulb had still not come out, so it was removed. During this process spontaneous rupture membranes took place. The patient's pain continued to worsen and she received a laboring epidural approximately midnight overnight. She is currently comfortable. There were a few late decelerations following the epidural that have improved. Currently the patient is feeling well. Vitals/I&O/Wt Last Vital Signs Temp 98.6 F 09/04/24 02:27 Pulse 66 09/04/24 06:28 Resp 16 09/03/24 22:52 BP 112/59 09/04/24 06:28 Pulse Ox 98 09/04/24 00:41 O2 Del Method Room Air 09/02/24 04:45 09/03/24 09/03/24 09/04/24 14:59 22:59 06:59 Intake Total 1038.616 / 8842.870 0996 / 8.616 3342.533 / 5381.149 Balance 1038.616 / 6606.275 4273 / 2038.616 3342.533 / 5381.149 Weight last 48 hrs Weight 265 lb 8 oz Physical Exam 2 Narrative: General: Alert and oriented x3 Cardiac: Regular rate and rhythm without murmurs Lungs: Clear to auscultation bilaterally without wheezes, crackles or rhonchi Abdomen: Soft, non-tender Extremities: +1 pitting edema in the bilateral lower extremities : 4/85/-3/soft Urinary Catheter Management: Mcqueen: Cath Placed During This Visit: yes Urinary Catheter Date of Insertion: 09/04/24 Urinary Catheter Time of Insertion: 01:25 Data 09/01/24 19:28 A&P Assessment and plan (1) Supervision of normal intrauterine in primigravida: heart tones are currently in the mid 140s with mild variability without consistent accelerations and are in the category 1 tracing. There are occasional early decelerations. By exam I am concerned that the is in the OP position. We will try position changes to help encourage this the head to rotate. We are currently on 22 units of Pitocin. We may increase this if heart tones show improved variability. We may consider an IUPC to help us dictate how high we can go on the IV Pitocin as long as the infant is tolerating this. Currently I am hesitant to increase further due to heart tones at this moment. The patient is currently afebrile. She is not tachycardic. We will continue with IV Pitocin at this point. We will continue to follow for the next plan of care. Attestations 2 Medical Necessity Statement*: The patient will be here for greater than 2 midnights due to intrapartum and management of labor and delivery. Coding Level of Care Code Acute Code for Chg Fwd Diagnoses Supervision of normal intrauterine in primigravida Z34.00
[2024-09-04] MEDS: oxytocin 30 UNIT/500 ML BAG 24 UNIT IV (12:38)
--- NOTE | 2024-09-04 15:00 | P.ANESUD_ITS ---
Pre-Anesthetic Update Pre-Anesthetic Assessment: Date of Surgery/Procedure: 09/04/24 Preop Citlalli gnosis: IUP Vitals: Temperature 98.3 F 09/04/24 15:06 Temperature Source Oral 09/04/24 15:06 Pulse Rate 79 09/04/24 15:58 Pulse Rhythm Regular 09/01/24 19:04 Pulse Strength 3+ Normal 09/01/24 19:04 Respiratory Rate 15 09/04/24 11:15 Respiratory Effort Spontaneous, Non- Labored 09/03/24 22:52 Respiratory Depth Normal 09/03/24 22:52 Respiratory Patter n Normal 09/03/24 22:52 Blood Pressure 133/69 09/04/24 15:58 Blood Pressure Pos ition Semi Fowlers 09/01/24 20:06 Pulse Oximetry 98 09/04/24 00:41 Oxygen Delivery Me thod Room Air 09/02/24 04:45 Cardiac Studies: No Data to Display Anesthesia Procedures Procedure Narrative: No changes since epidural placement, failure to progress. Plan for
--- NOTE | 2024-09-04 15:53 | PM.MISC ---
Miscellaneous Note Note: The patient had rupture membranes yesterday afternoon approximately 24 hours ago and was 2 cm at that time. Since then, she has been on IV Pitocin and was ronal every 2 to 3 minutes. At times they were hard to graph. She is up to 24 units of IV Pitocin. heart tones have been relatively flat with this dose and I am concerned about going to a higher dose. She did have occasional late decelerations earlier in the day. She was 5 cm this morning around 10 AM. Since then she has not made any cervical change. I checked her myself again at 3:45 PM and she continues to be 5 cm dilated. The seems to be in the OP position by exam. We have tried multiple position changes including hands and knees and there has been no change. We did discuss the possible risk of the being large for gestational age. The father of the baby weighed over 12 pounds at . The patient was measuring large for gestational age in clinic. Because she is not making any cervical change, I am concerned that she either has cephalic pelvic disproportion or OP positioning. Otherwise she has had arrest of dilation. For this reason we will proceed with a primary low-transverse section. I spoke with the patient about options and she agreed to proceed with this plan of care. All questions were answered.
[2024-09-04] MEDS: metoclopramide 5 mg/mL SDV 2 mL 10 MG IVP (16:10)
[2024-09-04] MEDS: ceFAZolin 2,000 mg SDV 2000 MG IVP (16:11)
[2024-09-04] MEDS: citric acid-sodium citrate 30 mL UDC PO (16:11)
[2024-09-04] MEDS: famotidine 20 mg/2 mL INJ IVP (16:11)
--- NOTE | 2024-09-04 17:55 | ANE.PACU2 ---
Inpatient post-anesthesia follow up: Airway intact: Yes Vital signs: Temperature 98.3 F Pulse Rate 79 Respiratory Rate 15 Blood Pressure 133/69 Pulse Oximetry 98 Oxygen Delivery Me thod Room Air Oxygen Flow Rate Fraction of Inspir ed Oxygen Hydration adequate: Yes Nausea and vomiting: No Pain level: 1 Mental status: Baseline
--- NOTE | 2024-09-04 17:56 | PM.OP ---
Operative Report Date of procedure: September 04, 2024 Pre-op diagnosis: 1. Intrauterine at 40.5 weeks gestation 2. Asthma 3. THC use in early 4. Arrest of dilation Post-op diagnosis: 1. Intrauterine status post primary low-transverse section at 40.5 weeks gestation 2. Asthma 3. THC use in early 4. Arrest of dilation 5. Delivery of healthy infant female weighing 8 pounds 6 ounces with Apgars of 8 and 9 Procedure done: Primary low-transverse section Specimens removed/disposition: Placenta discarded Surgeon: Simone Connor MD Estimated blood loss (mL): 600 Complications: None Brief History: Citlali Cornejo is a 28 year old G1 now P1 status post primary low-transverse section @ 40.5 weeks by LMP c/w with 9 wk US. Preg c/b asthma, THC use in early . The patient presented to labor and delivery for a scheduled induction of labor due to postdates on 09/01/2024. The patient was 1 cm dilated. She was started on Cytotec and received 4 doses. She did not make any significant change. We tried a trial with IV Pitocin and she did not make any change, so a Mcqueen bulb was placed. The Mcqueen bulb was in place for 12 hours and had not come out yet so IV Pitocin was started. After the Mcqueen bulb was in for approximately 19 hours, it was removed and the patient was only 2 cm dilated. Spontaneous rupture membranes took place at that time. The patient was continued on IV Pitocin and increased up to 20 units. She received a laboring epidural. She then had some late decelerations and the Pitocin had to be turned down. The heart tones improved again in the Pitocin was turned up gradually to 24 units. At that time heart tones were flat and we were unable to increase the dose further. The patient was only 5 cm dilated by the following morning on 09/04/2024 at 10 AM. She did not make any change by 3:45 PM on 09/04/2024 despite contractions every 2 to 3 minutes. Since we were unable to go up on the Pitocin anymore and she was not making cervical change, there was concern for arrest of dilation possibly due to cephalopelvic disproportion. We discussed the options and the patient agreed to proceed with a primary low-transverse section due to increasing risks for infection, significant perineal lacerations and shoulder dystocia. Procedure: After informed consent was obtained, the patient was taken to the operating room and the patient was prepped and draped in a normal sterile fashion in the dorsal supine position.? A spinal was placed and adequate anesthesia was obtained.? At 1642 on 09/04/2024 a Pfannenstiel skin incision was made and carried through to the underlying layer of fascia using a scalpel.? The fascial incision was then extended laterally using curved Mayos.? The fascia was then grasped with Jackie clamps and the underlying rectus muscles were dissected off taking care to avoid injury to the underlying tissues.? The peritoneum was entered bluntly with one digit.? It was then bluntly.? The bladder blade was placed and the vesicouterine peritoneum was well below the lower uterine segment of the uterus.? The uterine incision was made in the lower uterine segment in a transverse fashion with the scalpel at 1647.? The amniotic membrane was entered bluntly and a small amount of yellow, turbulent fluid was noted.? Uterine pressure was placed and the 's head delivered without complication at 164 on 09/04/2024.? There was no nuchal cord.? The mouth and nose were suctioned.? The rest of the infant delivered without difficulty.? The took a breath immediately upon delivery.? The cord was clamped and cut and the infant was handed to the awaiting pediatric nurses.? The placenta was then manually expressed. IV Pitocin was bolused.? The uterus was exteriorized from the abdomen.? A wet lap was used to clear the uterus of clots and debris.? The bladder blade was reinserted and the uterine incision was closed using 0 chromic in a running locking fashion.? The uterus was noted to be boggy. A second layer of the same suture was used in the same manner.? Excellent hemostasis was obtained. The uterus firmed up moderately well after this. Next the posterior cul-de-sac was inspected and was cleared of any blood. The gutters were cleared of any further clots and debris and the uterine incision was again inspected and hemostasis was noted.? The subfascial tissue was inspected for hemostasis and the peritoneum was re-approximated using 2-0 plain in a running fashion.? The fascia was then re-approximated using 0 Vicryl in a running fashion.? The subcutaneous tissue was inspected for hemostasis.? Debra's fascia was then re-approximated using 3-0 plain in a running fashion.? Good hemostasis was noted.? The subcutaneous tissue was then re-approximated using a subcuticular stitch.? The patient tolerated the procedure well and was recovered in stable condition.? Estimated blood loss was 600 mL. Urine in the Mcqueen catheter was clear. The patient was taken to recovery in good condition.
[2024-09-04] MEDS: lactated ringers 1,000 ML 125 ML IV (18:21)
[2024-09-04] MEDS: ketorolac 30 mg/mL INJ IVP (18:26)
[2024-09-04] MEDS: oxyCODONE-APAP 5-325 mg Tablet PO (21:59)
--- NOTE | 2024-09-04 22:30 | PC.NURSE ---
patient declined fundal assessment due to pain level. educated patient on risk of not assessing fundus and patient verbalized understanding and stated you can check on the next check .
[2024-09-05] VITALS (8 sets, daily range): BP systolic 111–123; BP diastolic 53–64; PULSE 65–82; RESP 16–18; TEMP 36.2–36.4
[2024-09-05] MEDS: ketorolac 30 mg/mL INJ IVP ×3 (00:10→11:51)
[2024-09-05] MEDS: dextrose 5%-lactated ringers 1,000 ML 125 ML IV (05:10)
[2024-09-05] MEDS: clindamycin 900 MG/50 ML PREMIX 100 MG IV ×3 (05:10→21:22)
[2024-09-05 05:29] LABS: Hematocrit 34.9 % (36-47); Mean Corpuscular HGB Conc 34.4 g/dL (30-55); Mean Corpuscular Hemoglobin 32.3 pg (27-33); Mean Corpuscular Volume 94.1 fl (85-98); Mean Platelet Volume 10.9 fL (7.4-10.4); Platelet Count 178 10^3/cmm (157-399); Red Blood Count 3.71 10^6/uL (3.85-5.65); Red Cell Distribution Width 12.5 % (12.1-15.1); White Blood Count 17.07 10^3/uL (3.29-11.43)
--- NOTE | 2024-09-05 08:07 | P.PN_ITS ---
Subjective 2 Subjective: The patient is doing well at this time. Her pain is a little increased today, however controlled. She has been able to ambulate. Her bleeding is decreasing. She is able to drink liquids. She passed gas overnight and we will try solids today. Vitals/I&O/Wt Last Vital Signs Temp 97.5 F L 09/05/24 05:13 Pulse 65 09/05/24 05:13 Resp 18 09/04/24 21:59 BP 113/55 09/05/24 05:13 Pulse Ox 100 09/04/24 18:16 O2 Del Method Room Air 09/04/24 18:16 09/04/24 09/05/24 09/05/24 22:59 06:59 14:59 Intake Total 376 / 1540.117 Output Total 2450 / 2450 850 / 3300 Balance -2074 / -909.883 -850 / -1759.883 Weight last 48 hrs Weight 265 lb 8 oz Physical Exam 2 Narrative: General: Alert and oriented x3 Cardiac: Regular rate and rhythm without murmurs Lungs: Clear to auscultation bilaterally without wheezes, crackles or rhonchi Abdomen: Soft, mild tenderness over uterus. The uterus is firm and 2 cm below the umbilicus. Bandage is clean and dry without signs of significant bleeding. Extremities: +1 edema in the bilateral lower extremities Urinary Catheter Management: Mcqueen: Cath Placed During This Visit: yes, but has since been removed by the nurse Reason for Continuing Indwelling Catheter: Decision to DC Catheter Urinary Catheter Date of Insertion: 09/04/24 Urinary Catheter Time of Insertion: 01:25 Date Urinary Catheter Removed: 09/05/24 Time Urinary Catheter Discontinued: 05:00 Data 09/05/24 05:05 A&P Assessment and plan (1) Status post section: The patient is doing well overall after having a section yesterday due to arrest of dilation. She was encouraged to continue to ambulate and we will see how she does with tolerating foods by mouth. Continue with clindamycin for 24 hours due to being ruptured prior to delivery. We will plan for discharge home tomorrow if she continues to do well. Attestations 2 Medical Necessity Statement*: The patient continues to need inpatient care as she recovers after section. Her stay will cross 2 midnights. Coding Level of Care Code Acute Code for Chg Fwd Diagnoses Status post section Z98.891
[2024-09-05] MEDS: PRENATAL VIT NO.130/IRON/FOLIC 1 EACH TABLET PO (09:40)
[2024-09-05] MEDS: docusate sodium 100 mg Capsule PO ×2 (09:40→17:08)
[2024-09-05] MEDS: oxyCODONE-APAP 5-325 mg Tablet PO ×2 (17:06→21:23)
--- NOTE | 2024-09-05 17:23 | PC.NURSE ---
1700: This nurse offered to help patient to shower at this time. Patient declined shower, patient states I don't feel like getting up now, I will shower tomorrow.
--- NOTE | 2024-09-05 20:00 | ANE.PACU2 ---
Inpatient post-anesthesia follow up: Airway intact: Yes Vital signs: Temperature 98.4 F Pulse Rate 86 Respiratory Rate 16 Blood Pressure 125/83 Pulse Oximetry 100 Oxygen Delivery Me thod Room Air Oxygen Flow Rate Fraction of Inspir ed Oxygen Hydration adequate: Yes Nausea and vomiting: No Pain level: 1 Mental status: Baseline Epidural Start/End: Epidural Start Date: 09/04/24 Epidural Start Time: 00:20 Epidural End Date: 09/04/24 Epidural End Time: 17:46
[2024-09-06 02:23] VITALS: RESP 18
[2024-09-06] MEDS: oxyCODONE-APAP 5-325 mg Tablet PO ×2 (02:23→11:53)
[2024-09-06 04:10] VITALS: BP 112/54; PULSE 75; TEMP 35.9
[2024-09-06] MEDS: clindamycin 900 MG/50 ML PREMIX 100 MG IV (05:18)
--- NOTE | 2024-09-06 09:22 | P.DS_ITS ---
Discharge Providers Date of Admission: 09/03/24 17:50 Date of Discharge: September 06, 2024 Attending Provider at Admission: Simone Connor MD Attending Provider at Discharge: Simone Connor MD Primary Care Provider: Simone Connor MD Diagnoses at Discharge Discharge Diagnosis (1) Status post section: Status: Acute Reason for Visit Reason for Visit: IOL Physical Exam Urinary Catheter Management: Mcqueen: Cath Placed During This Visit: yes, but has since been removed by the nurse Reason for Continuing Indwelling Catheter: Decision to DC Catheter Urinary Catheter Date of Insertion: 09/04/24 Urinary Catheter Time of Insertion: 01:25 Date Urinary Catheter Removed: 09/05/24 Time Urinary Catheter Discontinued: 05:00 Discharge Data Studies Completed and Pending Laboratory Results WBC 17.07 10^3/uL (3.29-11.43) H 09/05/24 05:05 RBC 3.71 10^6/uL (3.85-5.65) L 09/05/24 05:05 Hgb 12.00 g/dL (11.27-16.99) 09/05/24 05:05 Hct 34.9 % (36-47) L 09/05/24 05:05 MCV 94.1 fl (85-98) 09/05/24 05:05 MCH 32.3 pg (27-33) 09/05/24 05:05 MCHC 34.4 g/dL (30-55) 09/05/24 05:05 RDW 12.5 % (12.1-15.1) 09/05/24 05:05 Plt Count 178 10^3/cmm (157-399) 09/05/24 05:05 MPV 10.9 fL (7.4-10.4) H 09/05/24 05:05 Neut % (Auto) 75.2 % 09/01/24 19:28 Lymph % (Auto) 17.5 % 09/01/24 19:28 [place] % (Auto) 5.4 % 09/01/24 19:28 Eos % (Auto) 0.7 % 09/01/24 19:28 Baso % (Auto) 0.3 % 09/01/24 19:28 Neut # (Auto) 10.35 10^3/uL (1.8-7.7) H 09/01/24 19:28 Lymph # (Auto) 2.4 10^3/uL (0.8-4.8) 09/01/24 19:28 [place] # (Auto) 0.7 10^3/uL (0.2-0.9) 09/01/24 19:28 Eos # (Auto) 0.1 10^3/uL (0.0-0.8) 09/01/24 19:28 Baso # (Auto) 0.0 10^3/uL (0.0-0.1) 09/01/24 19:28 Nucleated RBC % (auto) 0 % 09/01/24 19:28 Nucleated RBCs # 0.0 /100WBC 09/01/24 19:28 Urine Opiates Screen Negative ng/mL (Negative) 09/01/24 19:28 Ur Barbiturates Screen Negative ng/mL (Negative) 09/01/24 19:28 Ur Phencyclidine Scrn Negative ng/mL (Negative) 09/01/24 19:28 Ur Amphetamines Screen Negative ng/mL (Negative) 09/01/24 19:28 U Benzodiazepines Scrn Negative ng/mL (Negative) 09/01/24 19:28 Urine Cocaine Screen Negative ng/mL (Negative) 09/01/24 19:28 U Marijuana (THC) Screen Negative ng/mL (Negative) 09/01/24 19:28 Blood Type AB Positive 09/01/24 19:28 Rho(D) Type Rh positive 09/01/24 19:28 Antibody Screen Negative 09/01/24 19:28 Vitals Last Vital Signs Temp 96.6 F L 09/06/24 04:10 Pulse 75 09/06/24 04:10 Resp 18 09/06/24 02:23 BP 112/54 09/06/24 04:10 Pulse Ox 100 09/04/24 18:16 O2 Del Method Room Air 09/04/24 18:16 Discharge Plan Discharge Patient Disposition: Home Condition: Good Prescriptions: New oxycodone-acetaminophen 5-325 mg Tablet 1 tab PO Q6H PRN (Reason: Moderate To Severe Pain) Qty: 20 0RF ibuprofen 800 mg Tablet 800 mg PO TID Qty: 60 0RF Continued albuterol sulfate 2.5 mg /3 mL (0.083 %) solution for nebulization 2.5 mg inhalation Q4H PRN (Reason: shortness of breath or wheezing) Qty: 75 5RF magnesium 200 mg tablet 200 mg PO DAILY PNV,calcium [id number] acid 27 mg iron- 1 mg tablet 1 tab PO DAILY fluticasone propionate 50 mcg/actuation spray,suspension See Rx Instructions .ROUTE .COMPLEX Qty: 16 5RF Dose Instruction: instill 2 SPRAYS IN EACH NOSTRIL EVERY DAY Rx Instructions: instill 2 SPRAYS IN EACH NOSTRIL EVERY DAY loratadine 10 mg tablet See Rx Instructions .ROUTE .COMPLEX Qty: 30 5RF Dose Instruction: TAKE ONE TABLET BY MOUTH DAILY Rx Instructions: TAKE ONE TABLET BY MOUTH DAILY albuterol sulfate 90 mcg/actuation HFA aerosol inhaler See Rx Instructions .ROUTE .COMPLEX Qty: 36 5RF Dose Instruction: inhale 2 puffs BY MOUTH EVERY 4 HOURS NEEDED FOR bronchospasm Rx Instructions: inhale 2 puffs BY MOUTH EVERY 4 HOURS NEEDED FOR bronchospasm fluticasone furoate-vilanterol [Breo Ellipta] 200-25 mcg/dose blister with device See Rx Instructions .ROUTE .COMPLEX Qty: 60 5RF Dose Instruction: inhale one PUFF BY MOUTH DAILY Rx Instructions: inhale one PUFF BY MOUTH DAILY montelukast 10 mg tablet See Rx Instructions .ROUTE .COMPLEX Qty: 30 5RF Dose Instruction: TAKE ONE TABLET BY MOUTH DAILY Rx Instructions: TAKE ONE TABLET BY MOUTH DAILY No Action (DME) nebulizer accessories Kit See Rx Instructions .ROUTE .MEDSUPPLY Qty: 1 2RF Rx Instructions: daily use oral set up (DME) Disposable nebulizer circuit See Rx Instructions .ROUTE .MEDSUPPLY Qty: 1 5RF Rx Instructions: As directed Discharge Orders: Discharge Order (Routine); Ordered 09/06/24 Ordered By: Simone Connor Referrals: Siomne Connor MD [Primary Care Provider] - 2 weeks (Please set up a follow-up appointment for 2 weeks and 6 weeks .) Discharge Diet: Regular Discharge Activity: Limit activity as instructed Patient Instructions: Depression (DC), Opioid Safety (DC), Preeclampsia and Eclampsia After Delivery (GEN), Hemorrhage (DC), OB C, OB Discharge Report, OB Food/Drug Interaction Guide, Opioid Safety, OB [facility], Abnormal Bleeding Activity Restrictions/Additional Instructions: Do not lift anything heavier than your in the car seat for the first 3 weeks, then gradually increase. No driving for 2 weeks. If you have any concern for infection in your incision site, please contact Dr. Connor's office right away. Nothing per vagina for 6 weeks. Showers are recommended instead of baths for the first 6 weeks. Discharge Attestations Time Spent in Discharge Care*: greater than 30 min Quality Metrics Clinical Quality Measures [ No reported AMI, CVA or VTE this stay] Coding Level of Care Code Acute Code for Chg Fwd Diagnoses Status post section Z98.891
[2024-09-06] MEDS: ibuprofen 800 mg tablet PO (11:52)
[2024-09-06] MEDS: PRENATAL VIT NO.130/IRON/FOLIC 1 EACH TABLET PO (11:52)
[2024-09-06 11:53] VITALS: RESP 17
[2024-09-06] MEDS: docusate sodium 100 mg Capsule PO (11:53)
[2024-09-06 12:08] VITALS: BP 125/83; PULSE 86
[2024-09-06 12:25] VITALS: BP 125/83; PULSE 86; RESP 16; TEMP 36.9
== END 2024-09-06 12:25 | disposition home or self-care (01) | DRG 788 ==
LOC: OBGYN 19:16
PROVIDERS: Admitting Provider Family Medicine; PCP Family Medicine; Visit Provider Family Medicine
PROC: 10D00Z1 Extraction of Products of Conception, Low, Open Approach (ICD-10-PCS; CPT 59514; principal; 2024-09-04 15:45)
DX: O48.0 Post-term pregnancy (principal); O62.1 Secondary uterine inertia; O62.0 Primary inadequate contractions; O76 Abnormality in fetal heart rate and rhythm complicating labor and delivery; Z3A.40 40 weeks gestation of pregnancy; Z37.0 Single live birth
CPT/HCPCS: 36415; 51702; 59025; 59409; 80306; 85025; 85027; 86850; 86900; 96374; 96376; 99211; G0378; J0690; J1885; J2371; J2405; J2590; J2765; J2795; J3010; J3490; J7030; J7120; J7121

== ENCOUNTER → 2025-02-09 09:24 | Outpatient (BNVA) | payer OTHER, SELFPAY | PROVIDERS: PCP Nurse Practitioner Family; Visit Provider Nurse Practitioner Family | DX: J30.89 Other allergic rhinitis (principal); J45.40 Moderate persistent asthma, uncomplicated; E55.9 Vitamin D deficiency, unspecified; Z30.41 Encounter for surveillance of contraceptive pills; R73.9 Hyperglycemia, unspecified | CPT/HCPCS: 80053; 80061; 82306; 82607; 83036; 84443; 85025 ==